=== PATIENT | male | born 1970 | race Caucasian/White ===

== ENCOUNTER 2018-05-30 00:32 | Emergency (ER) | payer OTHER ==
[~2018-05-30] VITALS: Ht 157.5 cm; Wt 105.0 kg
[2018-05-30 00:37] VITALS: BP 169/83
== END 2018-05-30 01:43 | disposition home or self-care (01) ==
LOC: ED 01:37
DX: F45.8 Other somatoform disorders (principal); K21.9 Gastro-esophageal reflux disease without esophagitis
CPT/HCPCS: 99283; Q0177

== ENCOUNTER → 2018-07-13 | Outpatient (CLI) | payer OTHER | END | disposition home or self-care (01) | LOC: RAD 14:07 | PROVIDERS: ATTEND Internal Medicine | DX: R07.0 Pain in throat (principal); R47.02 Dysphasia; R09.89 Other specified symptoms and signs involving the circulatory and respiratory systems | CPT/HCPCS: 74220 ==